=== PATIENT | male | born 1950 | race Caucasian/White ===

== ENCOUNTER 2018-07-30 15:59 | Emergency (ER) | payer BC, MEDICARE, OTHER ==
[~2018-07-30] VITALS: Ht 185.4 cm; Wt 120.2 kg
[~2018-07-30 15:59] MED LIST: CHROMIUM PICO400 MCG; CO Q-10400 MG; CORAL CALCIUM1 EAC2; CVS FISH OIL 11 EAC3; DEPO-TESTO200 MG/1 M; ECHINACEA400 MG; ELEMENTAL ZINC30 MG; GARLIC OIL1 EACH; GEMFIBROZIL 60600 MG PO; GLUCOPHAGE500 MG PO; GLUCOSAMINE &1 EAC1; L-LYSINE1000 M1; LISINOPRIL20 MG PO; MAGNESIUM GLUC500 M1; NEXIUM 40 MG CA40 M1 PO; NIACOR500 MG; POTASSIUM99 M1; SAW PALMETTO C1 EACH; SELENIMIN200 MCG; SUPER B COMPLE1 EAC2; VITAMIN D31000 UNI2; VITAMIN E1000 UNI3; VITCB500GO
[2018-07-30 16:05] VITALS: BP 116/69
[2018-07-30] MEDS ORDERED: SERTRALINE HCL50 MG PO (16:13)
[2018-07-30] MEDS ORDERED: KEFLEX500 M1 PO (16:14)
[2018-07-30] MEDS ORDERED: IBUPROFEN 600600 M1 PO (16:14)
== END 2018-07-30 16:47 | disposition home or self-care (01) ==
LOC: M.ERS 15:59
DX: S61.412A Laceration without foreign body of left hand, initial encounter (principal); K21.9 Gastro-esophageal reflux disease without esophagitis; E11.9 Type 2 diabetes mellitus without complications; I10 Essential (primary) hypertension; F17.210 Nicotine dependence, cigarettes, uncomplicated; W26.0XXA Contact with knife, initial encounter; Y93.89 Activity, other specified; Y92.89 Other specified places as the place of occurrence of the external cause; Y99.8 Other external cause status